=== PATIENT | male | born 1960 | race Caucasian/White ===

== ENCOUNTER 2018-12-04 13:53 | Emergency (ER) | payer OTHER, SELFPAY ==
[~2018-12-04] VITALS: Ht 185.4 cm; Wt 104.5 kg
[2018-12-04] MEDS ORDERED: ADACEL/BOOSTRIX VACCINE (DIPHTH/PERTUSS/ACELL/TETANUS)0.5ML SYR (90715) IM ONE (14:15)
[2018-12-04] MEDS ORDERED: COZA1TAB PO (14:15)
--- NOTE | 2018-12-04 14:47 | REP ---
Clinical: Trauma. Technique: Frontal view of the pelvis with neutral and frog lateral views of the left hip. Findings: Age-related degenerative changes are appreciated. Subtle fracture involving the acetabulum cannot be excluded and a small fracture fragment is suggested on the frog lateral view of the left hip. Impression: Subtle fracture involving the acetabulum cannot be excluded. Electronically Signed by Terrence Sims MD 12/04/2018 02:39 P
[2018-12-04] MEDS ORDERED: PERCOCET 5MG/325MG TAB PO ONE (15:00)
[2018-12-04] MEDS ORDERED: PERC5TAB12 PO (15:25)
[2018-12-04] MEDS ORDERED: BACIOIN5 OP (15:25)
[2018-12-04] MEDS ORDERED: LIDOCAINE 2% MDV 20 ML VIAL SC ONE (15:30)
[2018-12-04 16:10] VITALS: BP 140/80
== END 2018-12-04 16:12 | disposition home or self-care (01) ==
LOC: M ED 13:53
DX: S76.002A Unspecified injury of muscle, fascia and tendon of left hip, initial encounter (principal); S32.402A Unspecified fracture of left acetabulum, initial encounter for closed fracture; S61.212A Laceration without foreign body of right middle finger without damage to nail, initial encounter; S40.872A Other superficial bite of left upper arm, initial encounter; T76.11XA Adult physical abuse, suspected, initial encounter; Y92.098 Other place in other non-institutional residence as the place of occurrence of the external cause; Z79.899 Other long term (current) drug therapy